=== PATIENT | female | born 1995 | race Caucasian/White ===

== ENCOUNTER 2020-12-05 15:24 | Outpatient (CLI) | payer OTHER, MEDICAID, SELFPAY ==
--- NOTE | 2020-12-05 | US_ITS ---
WS: [id number] EARLY OBSTETRICAL ULTRASOUND (<14 WEEKS). HISTORY: SUPERVISED NORMAL COMPARISON: None available. Single intrauterine gestational sac is identified. Cardiac activity at 171 BPM. Beacon-rump length gregory sures 1.8 cm which corresponds to a gestation of 8w2d. Normal-appearing yolk sac and amnion demonstra elsy. Smallsubchorionic hemorrhage.Mixed echogenicity noted along the inferior gestational sac measure s 2.2 x 2.8 x 2.5 cm consistent with a small subchorionic hemorrhage. No free fluid. LEFT ovary is not visualized. RIGHT ovary is poorly visualized. Cervix is closed. US/US OB <=14 wk fetus w transvag IMPRESSION: 1. Single intrauterine gestation of 8 weeks 2 days an EDC of 07/15/2021. 2. Small subchorionic hemorrhage.
== END 2020-12-05 15:25 | disposition home or self-care (01) ==
LOC: RAD 15:27
PROVIDERS: PCP Electrodiagnostic Medicine; Visit Provider Family Medicine
DX: Z34.91 Encounter for supervision of normal pregnancy, unspecified, first trimester (principal); Z3A.08 8 weeks gestation of pregnancy
CPT/HCPCS: 76801; 76817

== ENCOUNTER 2021-02-17 09:20 | Outpatient (CLI) | payer OTHER, MEDICAID, SELFPAY ==
--- NOTE | 2021-02-17 09:30 | US_ITS ---
WS: [id number] THYROID ULTRASOUND (TI-RADS CRITERIA) History: 03/27/2015. Technique: Ultrasound examination of the thyroid and adjacent soft tissues is performed. FINDINGS: Right lobe: 5.9 cm x 1.9 cm x 1.5 cm. Volume: 9.0 cm3. Slightly enlarged thyroid with no focal solid nodule. Echotexture is very coarse which is new since t he prior study. Small colloid cyst in the central gland. No increased vascularity. Left lobe: 5.9 cm x 2.1 cm x 2.1 cm. Volume: 13.3 cm3. Mildly enlarged LEFT thyroid with coarse echotexture. No mass or nodules identified. No increased vas cularity. Isthmus: 0.6 cm. US/US thyroid [id number] Impression: 1. Mildly enlarged heterogeneous thyroid gland. 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 2. No thyroid nodules.
== END 2021-02-17 09:21 | disposition home or self-care (01) ==
LOC: RAD 09:26
PROVIDERS: PCP Electrodiagnostic Medicine; Visit Provider Family Medicine
DX: E04.1 Nontoxic single thyroid nodule (principal); E05.90 Thyrotoxicosis, unspecified without thyrotoxic crisis or storm; E04.9 Nontoxic goiter, unspecified
CPT/HCPCS: 76536

== ENCOUNTER 2021-02-19 07:48 | Outpatient (CLI) | payer OTHER, MEDICAID, SELFPAY ==
--- NOTE | 2021-02-19 08:05 | US_ITS ---
WS: [id number] OBSTETRICAL ULTRASOUND COMPLETE HISTORY: ANATOMY/NORMAL ,MULTIPAROUS COMPARISON: 12/05/2020 Single intrauterine gestation in variable presentation. Cervix is Closed and normal length. Cervical length is 5.8 cm. Normal amount of amniotic fluid surrounds the fetus. Placenta: Anterior, no previa or abruption. Placenta grade 0 Heart: 164 BPM. 4 chamber heart is noted. Outflow tracts appear to be intact. Evaluation is slightly limited by the body habitus. Anatomy: spine is posterior during the examination. No abnormality identified. Intracranial str uctures are negative. kidneys, stomach and urinary bladder are unremarkable. Limited cord inser tion site. The entire abdominal wall is not evident and difficult to visualize due to position. 4 extremities are present. profile: Unremarkable. Gender: Male. measurements: BPD = 4.4 cm = 19w1d HC = 16.4 cm = 19w1d AC = 13.8 cm = 19w1d FL = 3.0 cm = 19w1d EFW: 277 g. Biometry is internally concordant. AGA by ultrasound: 19w1d VIDAL by ultrasound: 07/15/2021 Appropriate growth compared to the first trimester ultrasound. US/US OB >= 14 weeks fetus [id number] IMPRESSION: 1. Single intrauterine gestation of 19w1d with an VIDAL of 07/15/2021. 2. Abdominal wall and cord insertion site are limited due to position of the f etus along with the spine. Suggest short-term follow-up. The remaining anatomy is otherwise negative.
== END 2021-02-19 07:49 | disposition home or self-care (01) ==
LOC: US 07:50
PROVIDERS: PCP Electrodiagnostic Medicine; Visit Provider Family Medicine
DX: Z36.89 Encounter for other specified antenatal screening (principal); Z3A.19 19 weeks gestation of pregnancy
CPT/HCPCS: 76805

== ENCOUNTER 2021-03-03 12:16 | Outpatient (CLI) | payer OTHER, MEDICAID, SELFPAY ==
[2021-03-03 12:30] VITALS: BMI 39.4
[2021-03-03 12:32] VITALS: BP 130/59; PULSE 107; TEMP 36.2
[2021-03-03 12:40] VITALS: RESP 18
[2021-03-03 12:55] VITALS: BP 117/67; PULSE 99; TEMP 36.1
[2021-03-03] MEDS: sodium chloride 0.9% 1,000 ML 999 ML IV (13:12)
[2021-03-03 13:18] LABS: Basophils % 0.4 %; Eosinophils # 0.1 10^3/uL (0.0-0.8); Eosinophils % 0.7 %; Hemoglobin 11.8 g/dL (11.5-15.3); Lymphocytes % 25.9 %; Mean Corpuscular HGB Conc 33.7 g/dL (30.0-36.0); Mean Corpuscular Hemoglobin 29.9 pg (28.0-34.0); Mean Corpuscular Volume 88.6 fL (81-99); Mean Platelet Volume 11.8 fL (7.4-10.4); Monocytes # 0.6 10^3/uL (0.2-0.9); Neutrophils % 64.2 %; Nucleated Red Blood Cells % 0 %; Platelet Count 202 10^3/cmm (130-400); Red Blood Count 3.95 10^6/uL (4.1-5.3); White Blood Count 7.6 10^3/uL (4.0-10.0)
[2021-03-03 13:25] VITALS: BP 110/57; PULSE 93
[2021-03-03 13:38] LABS: Alanine Aminotransferase 19 U/L (0-33); Albumin Level 3.8 g/dL (3.5-5.2); Alkaline Phosphatase 62 IU/L (35-105); Anion Gap 11.2 (5-19); Aspartate Amino Transferase 14 U/L (0-32); Blood Urea Nitrogen 7 mg/dL (6-20); C Reactive Protein 13.1 mg/L (0.0-4.9); Calcium 9.1 mg/dL (8.5-10.5); Carbon Dioxide 24 mmol/L (22-29); Chloride 108 mmol/L (98-107); Globulin 2.6 g/dL (1.3-4.6); Glomerular Filtration Rate 192.9 mL/min (90-130); Glucose 85 mg/dL (65-115); Magnesium 1.8 mg/dL (1.7-2.3); Osmolality Calculated 287 mOsm/kg (285-295); Potassium 3.2 mmol/L (3.5-5.1); Sodium 140 mmol/L (136-145); Total Bilirubin 0.2 mg/dL (0.15-1.2); Total Protein 6.4 g/dL (6.6-8.7)
[2021-03-03 13:55] VITALS: BP 120/55; PULSE 92
[2021-03-03 14:17] VITALS: BP 120/55; PULSE 92
== END 2021-03-03 14:21 | disposition home or self-care (01) ==
LOC: OPOB 12:22 → OBGYN 14:12
PROVIDERS: PCP Electrodiagnostic Medicine; Visit Provider Family Medicine
DX: O26.899 Other specified pregnancy related conditions, unspecified trimester (principal); Z3A.00 Weeks of gestation of pregnancy not specified; R19.7 Diarrhea, unspecified
CPT/HCPCS: 36415; 80053; 83735; 85025; 86140; 96360; 99211; J7030

== ENCOUNTER 2021-03-20 14:48 | Outpatient (CLI) | payer OTHER, MEDICAID, SELFPAY ==
--- NOTE | 2021-03-20 14:59 | US_ITS ---
WS: [id number] ULTRASOUND OB LIMITED TECHNIQUE: Limited ultrasound examination of the fetus. CLINICAL INFORMATION: ABDOMINAL WALL/UMBILICAL CORD INSERTION/FOLLOW UP US COMPARISON: February 19, 2021 FINDINGS: Single interuterine gestation. presentation is breech Placental location is anterior. Placenta grade: 0. heart rate 144 BPM. Cervix measures 5.2 cm. Normal cord insertion. Spine appears normal. [place] [id number] IMPRESSION: 1. presentation is breech. 2. Placenta is anterior. Cervix is long and closed. 3. Normal cord insertion. Spine appears normal.
== END 2021-03-20 14:49 | disposition home or self-care (01) ==
PROVIDERS: PCP Electrodiagnostic Medicine; Visit Provider Family Medicine
DX: O32.1XX0 Maternal care for breech presentation, not applicable or unspecified (principal)
CPT/HCPCS: 76816

== ENCOUNTER 2021-04-29 17:17 | Outpatient (CLI) | payer OTHER, MEDICAID, SELFPAY ==
[2021-04-29] VITALS (7 sets, daily range): BP systolic 121–135; BP diastolic 56–72; PULSE 82–93; RESP 18; TEMP 35.7–36.1; BMI 40.7
[2021-04-29 18:09] LABS: Bilirubin Urine Neg (Negative); Blood Urine Neg (Negative); Glucose Urine UA Norm (Normal); Ketones Urine Negative (Negative); Leukocyte Esterase Urine Negative (Negative); Nitrate Urine Negative (Negative); Protein Urine Neg (Negative); Urine Appearance Clear (CLEAR); Urine Color Yellow (Yellow); Urobilinogen Urine Norm (Negative); pH Urine 5 (5-7)
[2021-04-29 18:14] LABS: Add Urine Culture? No; Bacteria Urine TRACE /hpf; Mucus Urine TRACE /hpf; Squamous Epithelial Cell Urine 0-4 /hpf (0-5)
== END 2021-04-29 18:40 | disposition home or self-care (01) ==
LOC: OPOB 17:19 → OBGYN 17:20
PROVIDERS: PCP Electrodiagnostic Medicine; Visit Provider Family Medicine
DX: O26.899 Other specified pregnancy related conditions, unspecified trimester (principal); Z3A.00 Weeks of gestation of pregnancy not specified; M54.5 Low back pain
CPT/HCPCS: 59025; 81001; 99211

== ENCOUNTER 2021-06-22 06:47 | Emergency (ER) | payer OTHER, MEDICAID, SELFPAY ==
[2021-06-22 06:55] VITALS: BP 124/81; PULSE 62; RESP 24; TEMP 36.7; O2SAT 100; BMI 42.0
[2021-06-22 07:10] VITALS: BP 142/77; PULSE 62; O2SAT 98
--- NOTE | 2021-06-22 07:11 | ED_ITS ---
HPI - Anxiety General: Chief Complaint: Anxiety Stated Complaint: ANXIETY Time Seen by Provider: 06/22/21 07:02 History of Present Illness: HPI narrative: Patient woke with reflux 0 300 this morning. Patient states she pineapple late yesterday. She said this is consistent with her reflux problem that she has had. She is not taking any medications since she is been and reflux has been pretty bad. States that feels like it is in her upper epigastric area and radiates around. Making her feel anxious. Hurts more when she takes deep breath. Patient is 34 weeks denies any other problems can feel baby kicking and moving around presently. Patient states she cannot set up an to help relieve reflux because she said the baby highballs up and makes it worse. complaint: other (Reflux) Onset (ago): hour(s) Severity: moderate Quality: constant Place: home History of similar episodes: Yes Provoking factors: other (Pineapple) Associated symptoms: Reports no associated symptoms; Deny chest pain, chills, fever(s), headache(s), nausea or vomiting Review of Systems Const: Denies: fever(s), chills or body aches Eyes: Denies: change in vision or blurry vision ENMT: Denies: throat pain or nasal congestion Card: Denies: chest pain or dyspnea on exertion Resp: Denies: dyspnea, productive cough or non-productive cough GI: Reports: heartburn; Denies: abdominal pain, nausea or vomiting Musc: Denies: extremity pain Skin/Breast: Denies: rash Neuro: Denies: headache(s) Psych: Denies: anxiety or depression Mayank/Lymph: Denies: easy bruising [facility] ED Female Reproductive History: Date of last menstrual period: 10/09/20 Physical Exam Const: COMMON NORMALS: no acute distress, average body habitus and patient oriented x3 HENMT: COMMON NORMALS: normocephalic HEAD & SCALP: normal to inspection and normocephalic FACE & SINUS: normal facial exam Eye: COMMON NORMALS: conjunctivae normal GENERAL EYE: appearance normal, both eyes and all related structures CONJUNCTIVA: Yes conjunctivae normal Neck/C-Spine: COMMON NORMALS: no JVD Chest: COMMONS NORMALS: normal inspection of the chest Resp: COMMON NORMALS: normal respiratory effort Cardio: COMMON NORMALS: no JVD, regular rate and regular rhythm RATE: regul ar rate RHYTHM: regular rhythm GI: PALPATION: Yes Tenderness to palpation present (GI) (Epigastric area) Extremity: COMMON NORMALS: normal to inspection and full ROM Neuro: COMMON NORMALS: patient oriented x3 Course Vital Signs: Vital signs: Vital Signs Temperature 98.0 F 06/22/21 06:55 Pulse Rate 62 06/22/21 06:55 Respiratory Rate 24 H 06/22/21 06:55 Blood Pressure 124/81 06/22/21 06:55 Pulse Oximetry 100 06/22/21 06:55 MDM - Anxiety MDM Narrative: Medical decision making narrative: Patient had mild to moderate relief with the GI cocktail. Patient states she has felt the baby pushing up on her ribs. And that causes her some discomfort. She denies contractions presently. Patient did not take any reflux medicine during due to desire not to take medications. Reflux has been getting worse and she had chronic reflux moderate to severe before . He said her reflux actually got better than first part of the . Patient is feeling better will be discharged home can follow-up in OB if contractions start did encourage to get some [id number] medication to take and follow-up with OB doctor. Vital signs stable throughout the visit heart tones are 145. Discharge Plan Discharge Patient Disposition: Home Clinical Impression: Acute anxiety Heartburn during Qualifiers: Trimester: third trimester Qualified Code(s): O26.893 - Other specified related conditions, third trimester Condition: Stable Discharge Orders: Discharge ED (Routine); Ordered 06/22/21 Ordered By: Tang Jacobs Referrals: Suresh Chambers DO [Primary Care Provider] - Discharge Diet: As Directed Discharge Activity: Increase activity as tolerated Patient Instructions: Gastroesophageal Reflux Disease (ED) Activity Restrictions/Additional Instructions: Follow-up with medical provider as directed. Take medications as prescribed. Return to the ER or your medical provider if condition worsens. Please read and understand discharge instructions. If any questions ask please. I suggest using [id number] Pepcid and/or Mylanta Maalox combination to help with reflux. Can go to OB if you feel contractions starting to get placed on monitor after discharge. Coding Level of Care Code ED Machine Assistant for Chg Fwd Exam Comprehensive
[2021-06-22] MEDS: lidocaine 2% viscous 15 ML, aluminum-mag hydrox-simethicon 30 ML, sucralfate oral liq 1 GM PO (07:24)
[2021-06-22] MEDS: famotidine 20 mg Tablet 40 MG PO (08:01)
[2021-06-22 08:30] VITALS: BP 132/74; PULSE 64; O2SAT 99
[2021-06-22 09:00] VITALS: BP 132/74; PULSE 57; O2SAT 98
== END 2021-06-22 08:50 | disposition home or self-care (01) ==
PROVIDERS: Emergency Provider Nurse Practitioner Family; PCP Electrodiagnostic Medicine
DX: O99.343 Other mental disorders complicating pregnancy, third trimester (principal); F41.9 Anxiety disorder, unspecified; Z3A.34 34 weeks gestation of pregnancy
CPT/HCPCS: 99283

== ENCOUNTER 2021-06-23 19:26 | Inpatient (IN) | payer OTHER, MEDICAID, SELFPAY ==
[2021-06-23] VITALS (36 sets, daily range): BP systolic 103–138; BP diastolic 52–78; PULSE 78–121; RESP 17; BMI 41.3
--- NOTE | 2021-06-23 14:55 | US_ITS ---
WS: [id number] ABDOMINAL ULTRASOUND LIMITED REASON FOR VISIT: right upper quadrant pain TECHNIQUE: Grayscale and Doppler ultrasound examination of the abdomen. FINDINGS: Pancreas: Obscured by bowel gas. Abdominal aorta and IVC: Normal. Liver: Liver measures 16.6 cm in length. Normal echotexture with no focal lesion. Gallbladder: Gallbladder wall thickness measures 0.6 mm. Multiple gallbladder calculi. No fluid in th e gallbladder fossa. The gallbladder wall is thickened and very echogenic however on some images ther e appears to be some sonolucency in the wall which could represent edema. Right kidney: Right kidney measures 12.7 cm x 5.0 cm x 6.1 cm. Right kidney cortex measures 1.4 cm. N o mass, calculus, mild hydronephrosis of regnancy. US/US gall bladder [id number] IMPRESSION: Cholelithiasis. Equivocal findings for acute cholecystitis.
[2021-06-23 15:34] LABS: Basophils % 0.3 %; Eosinophils % 0.1 %; Hematocrit 34.3 % (37.0-47.0); Hemoglobin 11.8 g/dL (11.5-15.3); Lymphocytes # 1.5 10^3/uL (0.8-4.8); Mean Corpuscular HGB Conc 34.4 g/dL (30.0-36.0); Mean Corpuscular Volume 87.3 fL (81-99); Mean Platelet Volume 11.7 fL (7.4-10.4); Monocytes # 1.2 10^3/uL (0.2-0.9); Monocytes % 7.9 %; Neutrophils # 12.16 10^3/uL (1.8-7.7); Neutrophils % 81.1 %; Nucleated Red Blood Cells % 0 %; Platelet Count 217 10^3/cmm (130-400); Red Blood Count 3.93 10^6/uL (4.1-5.3); Red Cell Distribution Width 13.2 % (12.1-15.1)
[2021-06-23 15:49] LABS: Lactate (Lactic Acid level) 0.8 mmol/L (0.5-2.2)
[2021-06-23 15:57] LABS: Alanine Aminotransferase 7 U/L (0-33); Albumin Level 3.7 g/dL (3.5-5.2); Alkaline Phosphatase 125 IU/L (35-105); Anion Gap 17.8 (5-19); Aspartate Amino Transferase 11 U/L (0-32); Blood Urea Nitrogen 6 mg/dL (6-20); C Reactive Protein 105.8 mg/L (0.0-4.9); Calcium 8.3 mg/dL (8.5-10.5); Carbon Dioxide 18 mmol/L (22-29); Chloride 102 mmol/L (98-107); Globulin 2.8 g/dL (1.3-4.6); Glomerular Filtration Rate 266.9 mL/min (90-130); Glucose 81 mg/dL (65-115); Lipase 12 U/L (13-60); Osmolality Calculated 275 mOsm/kg (285-295); Potassium 3.8 mmol/L (3.5-5.1); Sodium 134 mmol/L (136-145); Total Bilirubin 0.6 mg/dL (0.15-1.2); Total Protein 6.5 g/dL (6.6-8.7)
[2021-06-23] MEDS: cefTRIAXone 2,000 MG in sodium chloride 0.9% (plus) 50 ML 100 MG IV (18:13)
[2021-06-23 18:17] LABS: Glucose Urine UA Norm (Normal); Ketones Urine 3+ (Negative); Protein Urine Neg (Negative); Specific Gravity, Urine 1.015 (1.005-1.030); Urine Appearance Clear (CLEAR); Urine Color Dark Yellow (Yellow); pH Urine 6.5 (5-7)
[2021-06-23 18:18] LABS: Add Urine Culture? No; Bacteria Urine 1+ /hpf; Bilirubin Urine 1+ (Negative); Blood Urine Neg (Negative); Leukocyte Esterase Urine Negative (Negative); Mucus Urine 3+ /hpf; Nitrate Urine Negative (Negative); Urobilinogen Urine 1 mg/dL (Negative); WBC Urine RARE /hpf (0-5)
[2021-06-23] MEDS: metroNIDAZOLE IV 500 MG/100 ML PREMIX 100 MG IV (18:49)
--- NOTE | 2021-06-23 19:25 | PM.HP ---
Providers/Chief Complaint Primary Care Provider: Suresh Chambers DO Chief Complaint: Contractions History of Present Illness Priyanka Ellis is a 26 year old at 36.5 weeks gestation by 8-week ultrasound inconsistent with LMP. Her is complicated by history of gestational hypertension, obesity, thyroid nodule, mild anemia and now with cholecystitis with cholelithiasis. The patient presented to my office today secondary to abdominal pain. She was concerned that it could be acid reflux. She went to the emergency department on Wednesday and was given a GI cocktail and sent home without labs. The patient was nauseous and has not been able to hold anything down. She was given Prilosec in the ER and it helped with acid reflux but she is getting worse. The patient has body aches all over. Because of these findings, I sent the patient to the OB department for further evaluation including labs and an ultrasound of her gallbladder. In the OB unit, the patient was found to have acute cholecystitis with cholelithiasis. Her labs were consistent with this as well. Patient denies any fevers, constipation, dysuria, headaches, cough. Medications/Allergies Allergies Allergy/AdvReac Type Severity Reaction Status Date / Time Penicillins Allergy ALGY-Anaphy Verified 06/22/21 06:53 laxis PFSH Acute PFSH: Medical History (Updated 06/23/21 @ 19:46 by Abner Cho MD) Thyroid nodule Surgical History (Updated 06/23/21 @ 19:46 by Abner Cho MD) H/O right knee surgery H/O wrist surgery [place] teeth removed Female Reproductive History: Date of last menstrual period: 10/09/20 : 3 Vitals/I&O/Wt Last Vital Signs Pulse 85 06/23/21 19:13 Resp 17 06/23/21 14:51 BP 136/63 06/23/21 19:13 06/23/21 06/23/21 06/23/21 06:59 14:59 22:59 Intake Total 50 / 50 Balance 50 / 50 Weight last 48 hrs Weight 264 lb Physical Exam Narrative: EXAM NARRATIVE: General: Alert and oriented x3 Eyes: Pupils equal round and reactive to light and accommodation Mouth: Mucous membranes moist, pharynx non-erythematous Cardiac: Regular rate and rhythm without murmurs Lungs: Clear to auscultation bilaterally without wheezes, crackles or rhonchi Abdomen: Positive Blair's sign, uterus is firm and consistent with gestational age. Extremities: Trace edema in the bilateral lower extremities Data : 06/23/21 15:10 06/23/21 15:10 A&P Additional A&P Information The patient has signs of acute cholecystitis with cholelithiasis. I spoke with Dr. Patterson regarding the patient and we will plan to start the patient on ceftriaxone and Flagyl for treatment of the cholecystitis. If this calms down, we will plan for doing a cholecystectomy outside of . If it is not improving, then we may need to proceed with an open cholecystectomy. The patient is having contractions every 3 to 5 minutes but currently is not making cervical change. She was 1 cm dilated upon arrival and has not made change at this point. We will repeat labs in the morning to see if there are signs of improvement. All questions were answered. The patient is in agreement with current plan of care. Attestations Medical Necessity Statement*: The patient is currently here under observation and we will follow to see how she does with the above. If she is not improving, we will need to change her status to inpatient at that time. Coding Level of Care Code Acute Subject Scientific Research for Abigail Camacho
[2021-06-23] MEDS: dextrose 5%-sod chloride 0.9% 1,000 ML 125 ML IV (20:41)
[2021-06-23] MEDS: acetaminophen 500 mg Tablet 1000 MG PO (22:59)
[2021-06-24] VITALS (16 sets, daily range): BP systolic 97–124; BP diastolic 46–60; PULSE 74–94; RESP 16–17; TEMP 36–36.8
[2021-06-24] MEDS: metroNIDAZOLE IV 500 MG/100 ML PREMIX 100 MG IV ×3 (02:46→20:26)
[2021-06-24 04:27] LABS: Basophils # 0.1 10^3/uL (0.0-0.1); Basophils % 0.3 %; Eosinophils % 0.2 %; Hematocrit 32.6 % (37.0-47.0); Hemoglobin 10.9 g/dL (11.5-15.3); Lymphocytes # 1.9 10^3/uL (0.8-4.8); Lymphocytes % 12.4 %; Mean Corpuscular HGB Conc 33.4 g/dL (30.0-36.0); Mean Corpuscular Hemoglobin 30.4 pg (28.0-34.0); Mean Corpuscular Volume 91.1 fL (81-99); Mean Platelet Volume 11.6 fL (7.4-10.4); Monocytes # 1.2 10^3/uL (0.2-0.9); Neutrophils % 78.3 %; Nucleated Red Blood Cells % 0 %; Platelet Count 206 10^3/cmm (130-400); Red Blood Count 3.58 10^6/uL (4.1-5.3); Red Cell Distribution Width 13.2 % (12.1-15.1); White Blood Count 15.4 10^3/uL (4.0-10.0)
[2021-06-24 04:48] LABS: Alanine Aminotransferase 8 U/L (0-33); Albumin Level 3.5 g/dL (3.5-5.2); Alkaline Phosphatase 112 IU/L (35-105); Anion Gap 17.4 (5-19); Aspartate Amino Transferase 9 U/L (0-32); Blood Urea Nitrogen 5 mg/dL (6-20); Calcium 8.4 mg/dL (8.5-10.5); Carbon Dioxide 19 mmol/L (22-29); Chloride 102 mmol/L (98-107); Glomerular Filtration Rate 191.5 mL/min (90-130); Glucose 87 mg/dL (65-115); Magnesium 1.8 mg/dL (1.7-2.3); Osmolality Calculated 277 mOsm/kg (285-295); Potassium 3.4 mmol/L (3.5-5.1); Sodium 135 mmol/L (136-145); Total Bilirubin 0.5 mg/dL (0.15-1.2); Total Protein 6.5 g/dL (6.6-8.7)
--- NOTE | 2021-06-24 07:35 | P.CONIM_ITS ---
Providers/Reason For Consult Consulting Physician/Specialty*: General Surgery Freddie Patterson MD Reason for Consult*: Suspected acute cholecystitis in third trimester of . Attending Physician: Abner Cho MD Primary Care Provider: Suresh Chambers DO History of Present Illness History of Present Illness Priyanka Ellis is a 26 year old female currently in her third trimester of (37 weeks) who said that she developed some epigastric burning several days ago. She has a history of reflux issues that have been persisting during and thought she was just dealing with more GERD symptoms, but ended up going to the emergency room where she was treated symptomatically. Unfortunately, further antacid therapy at home was not helpful. She denies any fevers or chills. She was seen in her primary care/obstetrics office and gallbladder disease was suspected given her tenderness on exam. An ultrasound showed cholelithiasis with gallbladder wall thickening. The patient cannot really say that she has had food intolerances or recurrent postprandial pain during her or before. The symptoms that she is now having apparently just had their onset very recently. The patient says she already feels a little bit better this morning. Review of Systems General: Reports: 10 or more systems reviewed and unremarkable except in HPI and below Const: Denies: fever(s) or chills Resp: Denies: dyspnea GI: Reports: abdominal pain, nausea, vomiting and diarrhea Meds/Allergies Home Medications and Allergies Allergies Allergy/AdvReac Type Severity Reaction Status Date / Time Penicillins Allergy ALGY-Anaphy Verified 06/22/21 06:53 laxis Current Medications Current Medications Generic Name Dose Route Start Last Admin Trade Name Freq PRN Reason Stop Dose Admin Acetaminophen 1,000 mg 06/23/21 19:24 06/23/21 22:59 Acetaminophen 500 Mg Tablet PO 1,000 mg Q6H PRN Administration MILD PAIN OR INCREASE TEMP Metronidazole 500 mg in 100 mls @ 100 mls/hr 06/23/21 18:30 06/24/21 02:46 Flagyl Iv IV 100 mls/hr Q8H KATI Administration Protocol Ceftriaxone Sodium 2,000 mg/ 50 mls @ 100 mls/hr 06/23/21 18:00 06/23/21 18:49 Sodium Chloride IV Infused Q24H KATI Infusion Protocol Dextrose/Sodium Chloride 1,000 mls @ 125 mls/hr 06/23/21 20:00 06/23/21 20:41 Dextrose 5%-Sod Chloride 0.9% IV 125 mls/hr .Q8H KATI Administration PFSH Acute PFSH: Medical History (Updated 06/23/21 @ 19:46 by Abner Cho MD) Thyroid nodule Surgical History (Updated 06/23/21 @ 19:46 by Abner Cho MD) H/O right knee surgery H/O wrist surgery [place] teeth removed Female Reproductive History: Date of last menstrual period: 10/09/20 : 3 Vitals/I&O/Wt Last Vital Signs Temp 98.3 F 06/24/21 05:01 Pulse 94 06/24/21 07:27 Resp 17 06/24/21 05:01 BP 110/51 06/24/21 07:27 06/23/21 06/24/21 06/24/21 22:59 06:59 14:59 Intake Total 150 / 150 Balance 150 / 150 Weight last 48 hrs Weight 264 lb Physical Exam Narrative: EXAM NARRATIVE: Was encountered in the obstetrics gunderson. She does not appear to be in any acute distress. The pupils are equal. No carotid bruits are heard. The lungs are clear anteriorly. The heart is regular. The abdomen is gravid and bowel sounds are present but may be somewhat hypoactive. The patient does have significant tenderness in the right upper quadrant but the remainder the abdomen is nontender. Blair's sign is equivocal. The extremities reveal no edema. Neurologically the patient is grossly intact. Data Labs: Other Labs: Laboratory Tests 06/23/21 06/24/21 15:10 04:19 Total Bilirubin 0.5 AST 9 ALT 8 Alkaline Phosphata se 112 H Lipase 12 L Imaging^: US: Radiologist's impression: Ultrasound 06/23/2021 IMPRESSION: Cholelithiasis. Equivocal findings for acute cholecystitis. A&P Assessment and plan (1) Acute calculous cholecystitis: The radiologist felt the imaging changes were equivocal for acute calculus cholecystitis, but I do not think there is any question that that is what is going on. Her gallbladder wall is 6 mm in diameter and appears to be edematous. I discussed gallbladder disease with the patient in some detail. Obviously her third trimester complicates this issue. I told her that our plan for now is to continue antibiotics (she has a penicillin allergy but is tolerating her third-generation cephalosporin without any symptoms) in the hope that she continues to improve and then we can approach her gallbladder following delivery, assuming she has no other complications. If she does not improve, however, consideration could be given to a percutaneous cholecystostomy tube, but we would have to find an interventional radiologist willing to do this; I will check with our local staff to see if this would even be a possibility. The alternative would be an open cholecystectomy, which I would like to try to avoid. Status: Acute Consult Attestations Medical Necessity Statement: See admitting service's notation. Coding Level of Care Code Acute Office Runner for g Fwd Diagnoses Acute calculous cholecystitis K80.00
[2021-06-24] MEDS: acetaminophen 500 mg Tablet 1000 MG PO (11:33)
[2021-06-24 14:27] LABS: Coronavirus Test Green County Not Detected
[2021-06-24] MEDS: dextrose 5%-sod chloride 0.9% 1,000 ML 125 ML IV (14:39)
--- NOTE | 2021-06-24 16:09 | PM.PN ---
Subjective Subjective: Interval history: The patient's pain was improving overnight, however did worsen after having some pudding. Prior to this it just felt like pressure. She has not had any vomiting. She has not had any fevers overnight. Vitals/I&O/Wt Last Vital Signs Temp 98.3 F 06/24/21 05:01 Pulse 77 06/24/21 14:22 Resp 16 06/24/21 07:30 BP 107/57 06/24/21 14:22 06/24/21 06/24/21 06/24/21 06:59 14:59 22:59 Intake Total 1100 / 1250 100 / 100 Balance 1100 / 1250 100 / 100 Weight last 48 hrs Weight 264 lb Physical Exam Narrative: EXAM NARRATIVE: General: Alert and oriented x3 Cardiac: Regular rate and rhythm without murmurs Lungs: Clear to auscultation bilaterally without wheezes, crackles or rhonchi Abdomen: Positive Blair's sign with stable pain in the right upper quadrant, uterus is firm and consistent with gestational age. Extremities: Trace edema in the bilateral lower extremities Data : 06/24/21 04:19 06/24/21 04:19 A&P Additional A&P Information The patient has acute cholecystitis and she is starting to show signs of improvement with Rocephin and Flagyl. The patient's pain is improving some, however was definitely worsened with pudding. We will continue with IV antibiotics and follow to see if her symptoms continue to improve sufficiently. If they do, there is a possibility that we could await induction of labor. If she is not improving or worsening, the patient may need to be induced to be able to proceed with a laparoscopic cholecystectomy. Patient would like to avoid having an open cholecystectomy in terms of risk and recovery time. I appreciate Dr. Patterson's consultation with this patient. We will need to change the patient to a full admit as we continue with IV antibiotics. Attestations Medical Necessity Statement*: The patient continues need inpatient care the patient will be here for greater than 2 midnights. Coding Level of Care Code Acute Quill Picking Machine Operator for Abigail Camacho
[2021-06-24] MEDS: cefTRIAXone 2,000 MG in sodium chloride 0.9% (plus) 50 ML 100 MG IV (18:40)
[2021-06-24] MEDS: ferrous sulfate EC 325 mg Tablet PO (18:40)
[2021-06-24] MEDS: loperamide 2 mg Capsule PO (18:44)
[2021-06-25] VITALS (9 sets, daily range): BP systolic 95–122; BP diastolic 49–63; PULSE 65–87
[2021-06-25] MEDS: metroNIDAZOLE IV 500 MG/100 ML PREMIX 100 MG IV ×3 (02:13→19:15)
[2021-06-25] MEDS: loperamide 2 mg Capsule PO (02:14)
[2021-06-25] MEDS: dextrose 5%-sod chloride 0.9% 1,000 ML 125 ML IV (02:14)
[2021-06-25 05:08] LABS: Basophils % 0.3 %; Eosinophils # 0.1 10^3/uL (0.0-0.8); Eosinophils % 0.8 %; Hematocrit 29.6 % (37.0-47.0); Hemoglobin 9.7 g/dL (11.5-15.3); Lymphocytes # 1.8 10^3/uL (0.8-4.8); Lymphocytes % 15.3 %; Mean Corpuscular HGB Conc 32.8 g/dL (30.0-36.0); Mean Corpuscular Hemoglobin 30.1 pg (28.0-34.0); Mean Corpuscular Volume 91.9 fL (81-99); Mean Platelet Volume 11.6 fL (7.4-10.4); Monocytes # 0.7 10^3/uL (0.2-0.9); Neutrophils # 9.05 10^3/uL (1.8-7.7); Neutrophils % 76.7 %; Nucleated Red Blood Cells % 0 %; Platelet Count 188 10^3/cmm (130-400); Red Blood Count 3.22 10^6/uL (4.1-5.3); Red Cell Distribution Width 13.3 % (12.1-15.1); White Blood Count 11.8 10^3/uL (4.0-10.0)
[2021-06-25 05:26] LABS: Alanine Aminotransferase 6 U/L (0-33); Albumin Level 3.3 g/dL (3.5-5.2); Alkaline Phosphatase 113 IU/L (35-105); Anion Gap 11.2 (5-19); Aspartate Amino Transferase 7 U/L (0-32); Blood Urea Nitrogen 3 mg/dL (6-20); Calcium 8.1 mg/dL (8.5-10.5); Carbon Dioxide 20 mmol/L (22-29); Chloride 107 mmol/L (98-107); Glomerular Filtration Rate 191.5 mL/min (90-130); Glucose 78 mg/dL (65-115); Osmolality Calculated 275 mOsm/kg (285-295); Potassium 3.2 mmol/L (3.5-5.1); Sodium 135 mmol/L (136-145); Total Bilirubin 0.2 mg/dL (0.15-1.2); Total Protein 5.3 g/dL (6.6-8.7)
--- NOTE | 2021-06-25 09:00 | P.PN_ITS ---
Subjective Subjective: Interval history: The patient says she continues to feel better daily. Vitals/I&O/Wt Last Vital Signs Temp 98.3 F 06/24/21 05:01 Pulse 71 06/25/21 04:56 Resp 16 06/24/21 07:30 BP 95/49 06/25/21 04:56 06/24/21 06/25/21 06/25/21 22:59 06:59 14:59 Intake Total 1150 / 1250 Balance 1150 / 1250 Weight last 48 hrs Weight 264 lb Physical Exam Narrative: EXAM NARRATIVE: Bowel sounds are present. She significantly less tender on exam today. Data : 06/25/21 05:00 06/25/21 05:00 A&P Assessment and plan (1) Acute calculous cholecystitis: Continued improvement as hoped. Discussed plan with Dr. Cho. If the patient continues to do well over the next 24 hours I would agree with sending her home, perhaps on oral antibiotics for 5 days or so. I did discuss a possible cholecystostomy tube with Dr. Hitchcock in radiology; he said he would be at least willing to try this if we ran into the need for it, but right now it looks like we might be able to avoid it altogether. Status: Acute Attestations Medical Necessity Statement*: See admitting service's notation. Coding Level of Care Code Acute Automatic Quilling Machine Operator for Abigail Camacho Diagnoses Acute calculous cholecystitis K80.00
[2021-06-25] MEDS: prenatal vitamin Capsule 1 CAP PO (09:55)
[2021-06-25] MEDS: ferrous sulfate EC 325 mg Tablet PO ×2 (09:55→18:14)
--- NOTE | 2021-06-25 14:47 | PM.PN ---
Subjective Subjective: Interval history: The patient's pain is starting she still has pain when the baby puts pressure on the right upper quadrant, however this is improving. The patient has been able to tolerate some liquids as long as they do not have higher fat content in them. The patient was able to tolerate oatmeal overnight. She would like to try a baked potato. She is having some diarrhea that is currently controlled with Imodium. She is only having mild nausea currently. Vitals/I&O/Wt Last Vital Signs Temp 98.3 F 06/24/21 05:01 Pulse 81 06/25/21 11:20 Resp 16 06/24/21 07:30 BP 101/55 06/25/21 11:20 06/24/21 06/25/21 06/25/21 22:59 06:59 14:59 Intake Total 1150 / 1250 100 / 1350 Balance 1150 / 1250 100 / 1350 Physical Exam Narrative: EXAM NARRATIVE: General: Alert and oriented x3 Cardiac: Regular rate and rhythm without murmurs Lungs: Clear to auscultation bilaterally without wheezes, crackles or rhonchi Abdomen: Positive Blair's sign with mild pain in the right upper quadrant, uterus is firm and consistent with gestational age. Extremities: Trace edema in the bilateral lower extremities Data : 06/25/21 05:00 06/25/21 05:00 A&P Additional A&P Information The patient has acute cholecystitis and she is starting to show signs of improvement with Rocephin and Flagyl. Overall I feel that medical management may be possible. We discussed that there would be benefits to the to wait until 39 weeks for delivery. Since the patient is showing signs of improvement, we will plan for IV antibiotics through tomorrow and consider discharge home at that time with oral antibiotics. If the patient is worsening with this, she may need a cholecystostomy tube versus open cholecystectomy. Otherwise we will plan for induction of labor at approximately 39 weeks and cholecystectomy after this. The patient is feeling more comfortable at this time. We will continue to advance diet with low-fat foods and see how she does with these. The patient does have some anemia that is likely delusional, however we will continue with the iron supplement as prescribed. The patient also has some mildly low potassium levels and we will replace this by mouth. This is likely secondary to the loose stools. Continue with current plan of care. All questions were answered. Attestations Medical Necessity Statement*: The patient continues need inpatient care and will be here for greater than 2 midnights. Coding Level of Care Code Acute Lead Ruby On Rails Developer for Abigail Camacho
[2021-06-25] MEDS: potassium chloride ER 20 mEq Tablet PO (15:35)
[2021-06-25] MEDS: cefTRIAXone 2,000 MG in sodium chloride 0.9% (plus) 100 ML 200 MG IV (18:07)
[2021-06-26] MEDS: dextrose 5%-sod chloride 0.9% 1,000 ML 50 ML IV (02:52)
[2021-06-26] MEDS: metroNIDAZOLE IV 500 MG/100 ML PREMIX 100 MG IV (03:10)
[2021-06-26 04:07] VITALS: BP 105/51; PULSE 73
[2021-06-26 07:34] LABS: Basophils % 0.4 %; Eosinophils # 0.2 10^3/uL (0.0-0.8); Eosinophils % 1.8 %; Hematocrit 33.6 % (37.0-47.0); Lymphocytes # 1.9 10^3/uL (0.8-4.8); Lymphocytes % 20.9 %; Mean Corpuscular HGB Conc 32.7 g/dL (30.0-36.0); Mean Corpuscular Hemoglobin 29.5 pg (28.0-34.0); Mean Corpuscular Volume 90.1 fL (81-99); Mean Platelet Volume 11.5 fL (7.4-10.4); Monocytes # 0.5 10^3/uL (0.2-0.9); Monocytes % 5.5 %; Neutrophils # 6.32 10^3/uL (1.8-7.7); Neutrophils % 70.6 %; Nucleated Red Blood Cells % 0 %; Platelet Count 193 10^3/cmm (130-400); Red Blood Count 3.73 10^6/uL (4.1-5.3); Red Cell Distribution Width 13.3 % (12.1-15.1)
[2021-06-26 07:54] LABS: Alanine Aminotransferase 7 U/L (0-33); Alkaline Phosphatase 118 IU/L (35-105); Anion Gap 15.6 (5-19); Aspartate Amino Transferase 11 U/L (0-32); Blood Urea Nitrogen 4 mg/dL (6-20); Calcium 7.9 mg/dL (8.5-10.5); Carbon Dioxide 20 mmol/L (22-29); Chloride 107 mmol/L (98-107); Globulin 3.1 g/dL (1.3-4.6); Glomerular Filtration Rate 266.9 mL/min (90-130); Glucose 118 mg/dL (65-115); Magnesium 1.7 mg/dL (1.7-2.3); Osmolality Calculated 286 mOsm/kg (285-295); Potassium 3.6 mmol/L (3.5-5.1); Sodium 139 mmol/L (136-145); Total Bilirubin 0.2 mg/dL (0.15-1.2); Total Protein 6.1 g/dL (6.6-8.7)
--- NOTE | 2021-06-26 08:14 | P.PN_ITS ---
Subjective Subjective: Interval history: The patient continues to feel better daily. Vitals/I&O/Wt Last Vital Signs Temp 98.3 F 06/24/21 05:01 Pulse 73 06/26/21 04:07 Resp 16 06/24/21 07:30 BP 105/51 06/26/21 04:07 06/25/21 06/26/21 06/26/21 22:59 06:59 14:59 Intake Total 690 / 1790.000 Balance 690 / 1790.000 Physical Exam Narrative: EXAM NARRATIVE: She has minimal remaining tenderness in the right upper quadrant on exam. Data : 06/26/21 07:15 06/26/21 07:15 A&P Assessment and plan (1) Acute calculous cholecystitis: Continued improvement as hoped. I am okay with the patient being discharged on a short course of oral antibiotics. We did discuss a cholecystectomy following delivery, assuming no further problems in the interim. I have recommended that she consider this within the first couple of months if she is having symptoms (most patients who remain symptomatic will have recurring problems by 3 months postpar james), but I do not know that it would be urgent immediately following delivery. Status: Acute Attestations 2 Medical Necessity Statement*: See admitting service's notation. 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
--- NOTE | 2021-06-26 08:41 | PM.DCS ---
Discharge Providers Date of Admission: 06/24/21 16:30 Date of Discharge: June 26, 2021 Attending Provider at Admission: Abner Cho MD Attending Provider at Discharge: Abner Cho MD Primary Care Provider: Suresh Chambers DO Diagnoses at Discharge Discharge Diagnosis (1) Acute calculous cholecystitis: Status: Acute Reason for Visit Reason for Visit: Contractions Hospital Course Hospital Course Priyanka Ellis is a 26 year old at 37.1 weeks gestation by 8-week ultrasound inconsistent with LMP. Her is complicated by history of gestational hypertension, obesity, thyroid nodule, mild anemia and now with acute cholecystitis with cholelithiasis. The patient presented to my office today secondary to abdominal pain. The patient was nauseous and had not been able to hold anything down. She was given Prilosec in the ER and it helped with acid reflux but she was getting worse. The patient had body aches all over. Because of these findings, I sent the patient to the OB department for further evaluation including labs and an ultrasound of her gallbladder. In the OB unit, the patient was found to have acute cholecystitis with cholelithiasis. Her labs were consistent with this as well. The patient was started on IV ceftriaxone and metronidazole for treatment of the cholecystitis. Dr. Patterson was consulted from surgery and gave recommendations that surgical intervention could be done if needed, however it would need to be an open procedure due to her gestational age. A cholecystostomy tube would also be a possibility if needed. I discussed this with the patient and we decided to see if the antibiotics would control her symptoms sufficiently enough to wait for the cholecystectomy after delivery. The patient's symptoms did improve with antibiotics and with significant dietary changes to cut out all fats. The patient was given IV antibiotics for 3 days and sent home with cefdinir and metronidazole as an outpatient. The patient will be induced secondary to the above at 39 weeks gestation and plan for a cholecystectomy after that at some point. The patient is to follow-up with me in clinic tomorrow and regularly afterwards and if her symptoms are worsening again, then we will proceed based on her gestational age. The patient is in agreement with the current plan of care and all questions were answered. I appreciate surgery's consultation with this patient. Physical Exam Narrative: EXAM NARRATIVE: General: Alert and oriented x3 Cardiac: Regular rate and rhythm without murmurs Lungs: Clear to auscultation bilaterally without wheezes, crackles or rhonchi Abdomen: No further pain in the right upper quadrant, uterus is firm and consistent with gestational age. Extremities: Trace edema in the bilateral lower extremities Discharge Data Data Completed and Pending: Completed Studies During Hospitalization Category Date Time Status US gall bladder 7 6705 Stat Ultrasound 06/23/21 14:55 Completed Labs from last 24 hours 06/26/21 06/26/21 07:15 07:15 WBC 9.0 RBC 3.73 L Hgb 11.0 L Hct 33.6 L MCV 90.1 MCH 29.5 MCHC 32.7 RDW 13.3 Plt Count 193 MPV 11.5 H Neut % (Auto) 70.6 Lymph % (Auto) 20.9 [place] % (Auto) 5.5 Eos % (Auto) 1.8 Baso % (Auto) 0.4 Neut # (Auto) 6.32 Lymph # (Auto) 1.9 [place] # (Auto) 0.5 Eos # (Auto) 0.2 Baso # (Auto) 0.0 Nucleated RBC % (a uto) 0 Nucleated RBCs # 0.0 Sodium 139 Potassium 3.6 Chloride 107 Carbon Dioxide 20 L Anion Gap 15.6 BUN 4 L Creatinine 0.3 L GFR Calculation 266.9 H Glucose 118 H Calculated Osmolal ity 286 Calcium 7.9 L Magnesium 1.7 Total Bilirubin 0.2 AST 11 ALT 7 Alkaline Phosphata se 118 H C-React Prot High Sens 10.280 H Total Protein 6.1 L Albumin 3.0 L Globulin 3.1 Vitals: Last Vital Signs Temp 98.3 F 06/24/21 05:01 Pulse 73 06/26/21 04:07 Resp 16 06/24/21 07:30 BP 105/51 06/26/21 04:07 Discharge Plan Discharge Patient Disposition: Home Condition: Stable Prescriptions: New cefdinir 300 mg capsule 300 mg PO BID 7 Days Qty: 14 RF: 0 metronidazole 500 mg tablet 500 mg PO TID Qty: 21 RF: 0 loperamide 2 mg capsule 2 mg PO QID PRN (Reason: loose stool) Qty: 30 RF: 0 Discharge Orders: Discharge Order (Routine); Ordered 06/26/21 Ordered By: Abner Cho Referrals: Abner Cho MD [Physician] - 06/27/21 (As scheduled) Discharge Diet: As Directed, Low Fat and GI Soft Discharge Activity: Increase activity as tolerated Patient Instructions: Cholecystitis (DC), Opioid Safety, OB Undelivered Discharge Activity Restrictions/Additional Instructions: If your pain is starting to increase again, please return to OB for a recheck or contact Dr. Cho. Discharge Attestations Time Spent in Discharge Care*: greater than 30 min Quality Metrics Clinical Quality Measures During this hospital stay, did patient experience: None Coding Level of Care Code Acute Chg FW DC note Diagnoses Acute calculous cholecystitis K80.00
[2021-06-26] MEDS: prenatal vitamin Capsule 1 CAP PO (09:44)
[2021-06-26] MEDS: ferrous sulfate EC 325 mg Tablet PO (09:44)
[2021-06-26] MEDS: metroNIDAZOLE 500 MG Tablet PO (10:53)
[2021-06-26 10:59] VITALS: BP 117/58; PULSE 79
[2021-06-26 11:00] VITALS: RESP 17; TEMP 36.7
[2021-06-26] MEDS: cefTRIAXone 2,000 MG in sodium chloride 0.9% (plus) 100 ML 200 MG IV (16:42)
[2021-06-26 17:22] VITALS: BP 119/58; PULSE 71; RESP 16; TEMP 36.9
== END 2021-06-26 17:40 | disposition home or self-care (01) | DRG 832 ==
LOC: OBGYN 06-24 11:03
PROVIDERS: Surgery; Admitting Provider Family Medicine; PCP Electrodiagnostic Medicine; Visit Provider Family Medicine
DX: O99.613 Diseases of the digestive system complicating pregnancy, third trimester (principal); K80.00 Calculus of gallbladder with acute cholecystitis without obstruction; O13.3 Gestational [pregnancy-induced] hypertension without significant proteinuria, third trimester; O99.213 Obesity complicating pregnancy, third trimester; O99.013 Anemia complicating pregnancy, third trimester; D64.9 Anemia, unspecified; Z3A.37 37 weeks gestation of pregnancy
CPT/HCPCS: 36415; 59025; 76705; 80048; 80053; 80076; 81001; 83605; 83690; 83735; 85025; 86140; 86141; 86850; 86900; 87040; 87635; 99211; G0378; J0696; S0030

== ENCOUNTER 2021-07-07 04:14 | Inpatient (IN) | payer MEDICAID, SELFPAY ==
[2021-07-07] VITALS (94 sets, daily range): BP systolic 111–142; BP diastolic 53–91; PULSE 56–105; RESP 20; TEMP 36.6–36.8; O2SAT 91–100; BMI 42.0
[2021-07-07 04:58] LABS: Basophils # 0.1 10^3/uL (0.0-0.1); Basophils % 0.6 %; Eosinophils % 0.4 %; Hemoglobin 11.3 g/dL (11.5-15.3); Lymphocytes # 2.5 10^3/uL (0.8-4.8); Lymphocytes % 26.8 %; Mean Corpuscular HGB Conc 33.2 g/dL (30.0-36.0); Mean Corpuscular Hemoglobin 29.8 pg (28.0-34.0); Mean Corpuscular Volume 89.7 fL (81-99); Mean Platelet Volume 12.3 fL (7.4-10.4); Monocytes # 0.6 10^3/uL (0.2-0.9); Monocytes % 6.5 %; Neutrophils # 6.06 10^3/uL (1.8-7.7); Neutrophils % 65.2 %; Nucleated Red Blood Cells % 0 %; Platelet Count 234 10^3/cmm (130-400); Red Blood Count 3.79 10^6/uL (4.1-5.3); Red Cell Distribution Width 13.3 % (12.1-15.1); White Blood Count 9.3 10^3/uL (4.0-10.0)
[2021-07-07 05:25] LABS: Alanine Aminotransferase 16 U/L (0-33); Albumin Level 3.6 g/dL (3.5-5.2); Alkaline Phosphatase 127 IU/L (35-105); Blood Urea Nitrogen 7 mg/dL (6-20); Calcium 8.7 mg/dL (8.5-10.5); Carbon Dioxide 21 mmol/L (22-29); Chloride 104 mmol/L (98-107); Globulin 3.1 g/dL (1.3-4.6); Glomerular Filtration Rate 191.5 mL/min (90-130); Glucose 70 mg/dL (65-115); Osmolality Calculated 278 mOsm/kg (285-295); Sodium 136 mmol/L (136-145); Total Bilirubin 0.2 mg/dL (0.15-1.2); Total Protein 6.7 g/dL (6.6-8.7); Uric Acid 2.8 mg/dL (2.4-5.7)
[2021-07-07 05:28] LABS: Bilirubin Urine Neg (Negative); Blood Urine Neg (Negative); Glucose Urine UA Norm (Normal); Ketones Urine Negative (Negative); Leukocyte Esterase Urine Negative (Negative); Nitrate Urine Negative (Negative); Protein Urine Neg (Negative); Specific Gravity, Urine 1.005 (1.005-1.030); Urine Appearance Clear (CLEAR); Urine Color Yellow (Yellow); Urobilinogen Urine Norm (Negative); pH Urine 7 (5-7)
[2021-07-07 05:29] LABS: Add Urine Culture? No; Amorphous Sediment Urine 1+ /hpf; Bacteria Urine TRACE /hpf; Mucus Urine 1+ /hpf; RBC Urine 0-4 /hpf (0-2); Squamous Epithelial Cell Urine 0-4 /hpf (0-5); WBC Urine 0-4 /hpf (0-5)
[2021-07-07 05:31] LABS: Urine Creatinine 28 mg/dL (28-217); Urine Protein Random 4 mg/dL
[2021-07-07 05:32] LABS: UPRO/UCREAT Ratio 0.14 mg/mg CR
[2021-07-07 05:34] LABS: Anion Gap 15.1 (5-19)
[2021-07-07 05:35] LABS: Aspartate Amino Transferase 17 U/L (0-32); Potassium 4.1 mmol/L (3.5-5.1)
[2021-07-07] MEDS: lactated ringers 1,000 ML 999 ML IV (07:28)
--- NOTE | 2021-07-07 07:55 | PM.HP ---
Providers/Chief Complaint Admitting Physician: Abner Cho MD Primary Care Provider: Suresh Chambers DO Chief Complaint: contractions History of Present Illness Priyanka Ellis is a 26 year old at 38.5 weeks gestation by 8-week ultrasound inconsistent with LMP. Her is complicated by obesity, thyroid nodule, mild anemia, acute cholecystitis with cholelithiasis at 37 weeks gestation. The patient presented to labor and delivery triage at approximately 1 AM on 07/07/2021 due to contractions. The patient was 1.5 cm upon arrival and changed to 3 cm dilation after 2 hours. For this reason the patient was kept for spontaneous labor. Her contractions were every 4 minutes and have spaced out to every 5 to 6 minutes. The patient denies any chest pains, shortness of breath, nausea, vomiting, diarrhea, constipation, dysuria, vaginal bleeding, leakage of fluid, fever. Her Covid test on 07/04/2021 was negative. Medications/Allergies Home Medications Medication Instructions Recorded Confirmed Last Taken Type loperamide 2 mg PO QID PRN #30 cap 06/26/21 Unknown Rx metronidazole 500 mg PO TID #21 tab 06/26/21 Unknown Rx Allergies Allergy/AdvReac Type Severity Reaction Status Date / Time Penicillins Allergy ALGY-Anaphy Verified 06/22/21 06:53 laxis PFSH Acute PFSH: Medical History Thyroid nodule Surgical History H/O right knee surgery H/O wrist surgery [place] teeth removed Female Reproductive History: Date of last menstrual period: 10/09/20 : 3 Vitals/I&O/Wt Last Vital Signs Temp 98.2 F 07/07/21 04:40 Pulse 88 07/07/21 07:05 Resp 20 H 07/07/21 01:07 BP 118/66 07/07/21 07:05 Weight last 48 hrs Weight 268 lb Physical Exam Narrative: EXAM NARRATIVE: General: Alert and oriented x3 Eyes: Pupils equal round and reactive to light and accommodation Mouth: Mucous membranes moist, pharynx non-erythematous Cardiac: Regular rate and rhythm without murmurs Lungs: Clear to auscultation bilaterally without wheezes, crackles or rhonchi Abdomen: Soft, non-tender, fundus consistent with gestational age Extremities: Trace edema in the bilateral lower extremities Data : 07/07/21 03:58 07/07/21 03:58 A&P Assessment and plan (1) Obesity: Status: Acute (2) Intrauterine : Status: Acute Additional A&P Information The patient presented to labor and delivery in spontaneous labor and change from 1.5 cm to 3 cm dilation. Her contractions have spaced out, so we will go ahead and augment her labor with IV Pitocin. The patient will receive a laboring epidural. Her GBS is negative. The patient's Covid swab done on 07/04/2021 was negative. All questions were answered the patient is in agreement with the current plan of care. Attestations Medical Necessity Statement*: The patient will be here for greater than 2 midnights due to routine intrapartum and management of labor and delivery. Coding Level of Care Code Acute Improvement Intern for Chg Fwd Diagnoses Obesity E66.9 Intrauterine Z34.90
[2021-07-07] MEDS: oxytocin 30 UNIT/500 ML BAG IV (08:53)
--- NOTE | 2021-07-07 09:00 | P.ANESASSM_ITS ---
Pre-Anesthetic Assessment Pre-Anesthetic Assessment: Height/Weight: Height 1.7 m Weight 121.563 kg Temp Pulse Resp BP Pulse Ox 98.2 F 80 20 H 141/69 99 07/07/21 04:40 07/07/21 09:24 07/07/21 01:07 07/07/21 09:24 07/07/21 09:21 Preop Diagnosis: IUP Was Beta Lo taken within 24 hours: N/A Was Clonidine taken within 24 hours: N/A Social: Social History: No alcohol and No tobacco Exam: Pre-Anes Outpt Exam: alert, oriented x 3, clear to auscultation bilaterally and regular rate & rhythm Airway: Submandibular: WNL Cervical ROM: WNL MP: 2 History/ROS: No significant history except as noted Pulmonary: Pulmonary: None reported CV/HEM: CV/HEM: None reported : : None reported Hepatic: Hepatic: None reported GI: GI: GERD (exacerbated by chronic cholecystitis) Metabolic: Metabolic: Morbid obesity Musc/skel: Musc/skel: None reported Neuropsych: Neuropsych: None reported Anesthetic Plan: ASA status: 2 Anesthesia: Anesthesia Evaluation Risk of > 500 ml blood loss (7ml/kg in children): No Meds/Allergies Current Medications: Current Medications Generic Name Dose Route Start Last Admin Trade Name Freq PRN Reason Stop Dose Admin Lactated Ringer's 1,000 mls @ 999 m ls/hr 07/07/21 04:13 07/07/21 07:28 Lactated Ringers IV 999 mls/hr .Q1H1M PRN Administration See label comment s Oxytocin 30 unit in 500 ml s @ 2 mls/hr 07/07/21 06:42 07/07/21 08:53 Pitocin IV 2 milliunit/min .Q24H PRN 2 mls/hr Labor Augmentatio n Administration Protocol 2 MILLIUNIT/MIN PFSH Anesthesia PFSH: Medical History Thyroid nodule Surgical History H/O right knee surgery H/O wrist surgery [place] teeth removed Female Reproductive History: Date of last menstrual period: 10/09/20 : 3 Data Anesthesia CBC & Chem 7: 07/07/21 03:58 07/07/21 03:58 Other Labs: Laboratory Results - last 48 hr 07/07/21 07/07/21 07/07/21 03:58 03:58 03:58 WBC 9.3 RBC 3.79 L Hgb 11.3 L Hct 34.0 L MCV 89.7 MCH 29.8 MCHC 33.2 RDW 13.3 Plt Count 234 MPV 12.3 H Neut % (Auto) 65.2 Lymph % (Auto) 26.8 [place] % (Auto) 6.5 Eos % (Auto) 0.4 Baso % (Auto) 0.6 Neut # (Auto) 6.06 Lymph # (Auto) 2.5 [place] # (Auto) 0.6 Eos # (Auto) 0.0 Baso # (Auto) 0.1 Nucleated RBC % (auto) 0 Nucleated RBCs # 0.0 Sodium 136 Potassium 4.1 Chloride 104 Carbon Dioxide 21 L Anion Gap 15.1 BUN 7 Creatinine 0.4 L GFR Calculation 191.5 H Glucose 70 Calculated Osmolality 278 L Uric Acid 2.8 Calcium 8.7 Total Bilirubin 0.2 AST 17 ALT 16 Alkaline Phosphatase 127 H Total Protein 6.7 Albumin 3.6 Globulin 3.1 Urine Color Urine Appearance Urine pH Ur Specific [place] Urine Protein Urine Glucose (UA) Urine Ketones Urine Blood Urine Nitrate Urine Bilirubin Urine Urobilinogen Ur Leukocyte Esterase Urine RBC Urine WBC Ur Squamous Epith Cells Amorphous Sediment Urine Bacteria Urine Mucus U Random Total Protein 4 Urine Creatinine 28 Protein/Creatinin Ratio 0.14 07/07/21 03:58 WBC RBC Hgb Hct MCV MCH MCHC RDW Plt Count MPV Neut % (Auto) Lymph % (Auto) [place] % (Auto) Eos % (Auto) Baso % (Auto) Neut # (Auto) Lymph # (Auto) [place] # (Auto) Eos # (Auto) Baso # (Auto) Nucleated RBC % (auto) Nucleated RBCs # Sodium Potassium Chloride Carbon Dioxide Anion Gap BUN Creatinine GFR Calculation Glucose Calculated Osmolality Uric Acid Calcium Total Bilirubin AST ALT Alkaline Phosphatase Total Protein Albumin Globulin Urine Color Yellow Urine Appearance Clear Urine pH 7 Ur Specific [place] 1.005 Urine Protein Neg Urine Glucose (UA) Norm Urine Ketones Negative Urine Blood Neg Urine Nitrate Negative Urine Bilirubin Neg Urine Urobilinogen Norm Ur Leukocyte Esterase Negative Urine RBC 0-4 H Urine WBC 0-4 H Ur Squamous Epith Cells 0-4 H Amorphous Sediment 1+ Urine Bacteria Trace Urine Mucus 1+ U Random Total Protein Urine Creatinine Protein/Creatinin Ratio Cardiac Studies: No Data to Display
[2021-07-07] MEDS: dextrose 5%-lactated ringers 1,000 ML 125 ML IV ×2 (09:30→17:46)
--- NOTE | 2021-07-07 19:57 | P.MISC_ITS ---
Miscellaneous Note Note: The patient was initially making change on her own, however this change had stopped and she was given IV Pitocin to augment labor. She is stalled out at 3.5 cm dilation. For this reason a Ureña bulb has been placed to help augment labor. This was placed without complication. The patient is c omfortable at this time. She has a laboring epidural. We will decrease IV Pitocin to 10 units and increase once the Ureña bulb comes out. The patient and her significant other are in agreement with the current plan of care. All questions were answered.
[2021-07-08] VITALS (45 sets, daily range): BP systolic 101–149; BP diastolic 51–104; PULSE 50–82; RESP 16; TEMP 36.1–36.9; O2SAT 97–99
[2021-07-08] MEDS: dextrose 5%-lactated ringers 1,000 ML 125 ML IV (00:53)
--- NOTE | 2021-07-08 04:11 | PM.DELIVERY ---
Delivery Note: Date of delivery: July 08, 2021 Pre-delivery diagnoses: 1. Intrauterine at 38.6 weeks gestation 2. Acute cholecystitis with cholelithiasis at 37 weeks gestation 3. Thyroid nodule 4. Mild anemia Post-delivery diagnoses: 1. Intrauterine status post spontaneous vaginal delivery at 38.6 weeks gestation 2. Acute cholecystitis with cholelithiasis at 37 weeks gestation 3. Thyroid nodule 4. Mild anemia 5. Delivery of infant male weighing 9 pounds 3 ounces with Apgars of 6 and 7 Op report anesthesia: Epidural Delivering Physician: Abner Cho MD Estimated blood loss (mL): 100 Pre-Delivery Course: Patient presented to labor and delivery triage with contractions on the morning of 07/07/2021. The contractions were regular and she made change from 1 cm to 3 cm after an hour. For this reason she was kept. The patient was then given IV Pitocin for augmentation of labor as her contractions started to space out. The patient received a laboring epidural. The patient then stalled out and a Ureña bulb was placed to assist with dilation. The patient then continued to make change although it was slow. The mother had an anterior lip at 3:34 AM on 07/08/2021. This was easily reducible. Delivery: The patient began pushing at 3:34 AM on 07/08/2021. She was complete after 1 set of contractions. The patient pushed well and the delivered in the OA position at 3:46 AM on 07/08/2021. The left shoulder was the anterior shoulder and it delivered with ease. Rest of the delivered without complication. The infant's mouth and nose were bulb suctioned by myself. The infant had good tone at delivery and was crying immediately after delivery. The infant was placed on the mother's chest where the nurses were waiting to care for him. The cord was clamped myself after approximately 1 minute and cut by the 's father. The cord was then drained of blood and traction was placed on umbilical cord and uterine massage was carried out. The placenta delivered without complication at 3:52 AM on 07/08/2021. The placenta was noted to be intact with a central umbilical cord insertion site. The cervix was inspected and no lacerations were noted. The vaginal was inspected and there was a small abrasion in the periurethral region. No suturing was needed. The mother's bleeding is very little at this time. Currently both the mother and infant are doing well. A&P Assessment and plan (1) Obesity: Status: Acute (2) Intrauterine : Status: Acute Coding Level of Care Code Acute Director Of Student Life for Chg Fwd Diagnoses Obesity E66.9 Intrauterine Z34.90
[2021-07-08] MEDS: oxytocin 30 UNIT/500 ML BAG 600 UNIT IV (04:27)
[2021-07-08] MEDS: acetaminophen 325 mg Tablet 650 MG PO (07:41)
--- NOTE | 2021-07-08 09:49 | ANE.PACU2 ---
Inpatient post-anesthesia follow up: Airway intact: Yes Vital signs: Temperature 97.4 F Pulse Rate 73 Respiratory Rate 20 Blood Pressure 119/74 Pulse Oximetry 98 Oxygen Delivery Me thod Room Air Oxygen Flow Rate Fraction of Inspir ed Oxygen Hydration adequate: Yes Nausea and vomiting: No Pain level: 2 Mental status: Baseline
[2021-07-08] MEDS: ibuprofen 800 mg tablet PO ×3 (10:03→20:43)
[2021-07-08] MEDS: prenatal vitamin Capsule 1 CAP PO (10:03)
[2021-07-08] MEDS: docusate sodium 100 mg Capsule PO ×2 (10:04→17:49)
--- NOTE | 2021-07-08 11:15 | PC.NURSE ---
Patient and spouse are going to take a nap and have asked this nurse to take baby to nurses station for about an hour.
[2021-07-08 17:19] LABS: Hematocrit 35.5 % (37.0-47.0); Hemoglobin 11.7 g/dL (11.5-15.3); Mean Corpuscular Hemoglobin 30.2 pg (28.0-34.0); Mean Corpuscular Volume 91.7 fL (81-99); Mean Platelet Volume 12.3 fL (7.4-10.4); Platelet Count 208 10^3/cmm (130-400); Red Blood Count 3.87 10^6/uL (4.1-5.3); Red Cell Distribution Width 13.5 % (12.1-15.1)
[2021-07-09 04:30] VITALS: BP 116/80; PULSE 72; RESP 16
--- NOTE | 2021-07-09 08:49 | PM.DCS ---
Discharge Providers Date of Admission: 07/07/21 04:14 Date of Discharge: July 09, 2021 Attending Provider at Admission: Abner Cho MD Attending Provider at Discharge: Abner Cho MD Primary Care Provider: Suresh Chambers DO Diagnoses at Discharge Discharge Diagnosis (1) Obesity: Status: Acute (2) Intrauterine : Status: Acute Other Information Additional DC diagnoses/information: 1. Intrauterine status post spontaneous vaginal delivery at 38.6 weeks gestation 2. Acute cholecystitis with cholelithiasis at 37 weeks gestation 3. Thyroid nodule 4. Mild anemia 5. Delivery of male weighing 9 pounds 3 ounces with Apgars of 6 and 7 Reason for Visit Reason for Visit: contractions Hospital Course Hospital Course Pre-Delivery Course: The patient presented to labor and delivery triage with contractions on the morning of 07/07/2021. The contractions were regular and she made change from 1 cm to 3 cm after an hour. For this reason she was kept. The patient was then given IV Pitocin for augmentation of labor as her contractions started to space out. The patient received a laboring epidural. The patient then stalled out and a Ure[place] bulb was placed to assist with dilation. The patient then continued to make change although it was slow. The mother had an anterior lip at 3:34 AM on 07/08/2021. This was easily reducible. Delivery: The patient began pushing at 3:34 AM on 07/08/2021. She was complete after 1 set of contractions. The patient pushed well and the infant delivered in the OA position at 3:46 AM on 07/08/2021. The left shoulder was the anterior shoulder and it delivered with ease. Rest of the infant delivered without complication. The infant's mouth and nose were bulb suctioned by myself. The had good tone at delivery and was crying immediately after delivery. The infant was placed on the mother's chest where the nurses were waiting to care for him. The cord was clamped myself after approximately 1 minute and cut by the infant's father. The cord was then drained of blood and traction was placed on umbilical cord and uterine massage was carried out. The placenta delivered without complication at 3:52 AM on 07/08/2021. The placenta was noted to be intact with a central umbilical cord insertion site. The cervix was inspected and no lacerations were noted. The vaginal was inspected and there was a small abrasion in the periurethral region. No suturing was needed. : The patient has done very well without any complications. Her bleeding is decreasing well. She is ambulating, voiding, passing gas and tolerating food by mouth. She initially had a headache after delivery, that has improved since. The patient is currently having no symptoms from her gallbladder. The patient had acute cholecystitis with cholelithiasis and will plan to follow-up with Dr. Patterson in 1 month for outpatient laparoscopic cholecystectomy. All questions were answered. Routine discharge instructions were discussed. The patient and her are in agreement with the current plan of care. Physical Exam Narrative: EXAM NARRATIVE: General: Alert and oriented x3 Cardiac: Regular rate and rhythm without murmurs Lungs: Clear to auscultation bilaterally without wheezes, crackles or rhonchi Abdomen: Soft, non-tender, fundus is firm and 2 cm below the umbilicus. Extremities: Trace edema in the bilateral lower extremities Urinary Catheter Management^: Latex Free: Cath Placed During This Visit: yes, but has since been removed by the nurse Reason for Continuing Indwelling Catheter: Decision to DC Catheter Urinary Catheter Date of Insertion: 07/07/21 Urinary Catheter Time of Insertion: 11:17 Date Urinary Catheter Removed: 07/08/21 Time Urinary Catheter Discontinued: 03:31 Discharge Data Data Completed and Pending: Labs from last 24 hours 07/08/21 16:38 WBC 13.0 H RBC 3.87 L Hgb 11.7 Hct 35.5 L MCV 91.7 MCH 30.2 MCHC 33.0 RDW 13.5 Plt Count 208 MPV 12.3 H Vitals: Last Vital Signs Temp 98.4 F 07/08/21 21:41 Pulse 72 07/09/21 04:30 Resp 16 07/09/21 04:30 BP 116/80 07/09/21 04:30 Pulse Ox 97 07/08/21 17:32 Discharge Plan Discharge Patient Disposition: Home Condition: Good Prescriptions: New ibuprofen 800 mg Tablet 800 mg PO TID Qty: 60 RF: 0 -U 106.5-1 mg Capsule 1 cap PO DAILY Qty: 30 RF: 0 ferrous sulfate 325 mg (65 mg iron) tablet 325 mg PO BID Qty: 30 RF: 0 Discontinued metronidazole 500 mg tablet 500 mg PO TID Qty: 21 RF: 0 loperamide 2 mg capsule 2 mg PO QID PRN (Reason: loose stool) Qty: 30 RF: 0 Discharge Orders: Discharge Order (Routine); Ordered 07/09/21 Ordered By: Abner Cho Referrals: Freddie Patterson MD [Physician] - 1 month (Follow-up on acute cholecystitis with cholelithiasis) Abner Cho MD [Physician] - 6 Weeks Discharge Diet: As Directed Discharge Activity: Increase activity as tolerated Patient Instructions: Opioid Safety Activity Restrictions/Additional Instructions: Nothing per vagina for 6 weeks. Keep your diet bland as discussed. If having further problems regarding your gallbladder, please get earlier appointment with Dr. Patterson. Discharge Attestations Time Spent in Discharge Care*: greater than 30 min Quality Metrics Clinical Quality Measures During this hospital stay, did patient experience: None Coding Level of Care Code Acute Chg FW [place] note Diagnoses Obesity E66.9 Intrauterine Z34.90
[2021-07-09 10:19] VITALS: BP 121/80; PULSE 78; RESP 17; TEMP 36.8; O2SAT 98
[2021-07-09] MEDS: docusate sodium 100 mg Capsule PO (10:38)
[2021-07-09] MEDS: ibuprofen 800 mg tablet PO (10:39)
[2021-07-09] MEDS: prenatal vitamin Capsule 1 CAP PO (10:39)
[2021-07-09 12:44] VITALS: BP 121/80; PULSE 78; RESP 17; TEMP 36.8; O2SAT 98
== END 2021-07-09 12:30 | disposition home or self-care (01) | DRG 806 ==
LOC: OPOB 04:24 → OBGYN 06:26
PROVIDERS: Admitting Provider Family Medicine; PCP Electrodiagnostic Medicine; Visit Provider Family Medicine
DX: O99.214 Obesity complicating childbirth (principal); K80.00 Calculus of gallbladder with acute cholecystitis without obstruction; Z37.0 Single live birth; O99.62 Diseases of the digestive system complicating childbirth; E66.01 Morbid (severe) obesity due to excess calories; K21.9 Gastro-esophageal reflux disease without esophagitis; O99.284 Endocrine, nutritional and metabolic diseases complicating childbirth; E04.1 Nontoxic single thyroid nodule; O99.02 Anemia complicating childbirth; D64.9 Anemia, unspecified; Z3A.38 38 weeks gestation of pregnancy
CPT/HCPCS: 36415; 51702; 59025; 59409; 80053; 81001; 82570; 84156; 84550; 85025; 85027; 86850; 86900; 98960; 99211; J2795

== ENCOUNTER 2022-02-21 11:40 | Emergency (ER) | payer OTHER, MEDICAID, SELFPAY ==
[2022-02-21 11:45] VITALS: BP 153/103; PULSE 72; RESP 22; TEMP 36.3; O2SAT 100; BMI 36.3
--- NOTE | 2022-02-21 11:53 | XRR_ITS ---
PROCEDURE INFORMATION: Exam: XR Chest Exam date and time: 02/21/2022 12:28 PM Age: 26 years old Clinical indication: Cough and dyspnea; Additional info: Dyspnea/cough TECHNIQUE: Imaging protocol: XR of the chest. Views: 1 view. COMPARISON: CR Chest 1 [place] [id number] 09/20/2018 10:47 PM FINDINGS: Lungs: Unremarkable. No consolidation. Pleural spaces: Unremarkable. No pleural effusion. No pneumothorax. Heart/Mediastinum: Unremarkable. No cardiomegaly. Bones/joints: Unremarkable. XR/XR chest 1V portable [id number] IMPRESSION: No acute findings.
--- NOTE | 2022-02-21 12:30 | ED_ITS ---
HPI - Abdominal Pain General: Chief Complaint: Shortness of Breath/Dyspnea Stated Complaint: pain in abdomen and trouble talking/moving Time Seen by Provider: 02/21/22 11:49 Source: patient Mode of arrival: ambulatory Limitations: no limitations History of Present Illness: 26-year-old female presents emergency room complaining of right upper quadrant pain has been worsening over the last week This been ongoing for several months now dating back to her previous pregnancies she has known cholelithiasis she seen Dr. Zuluaga is actually scheduled for cholecystectomy. She is still getting abdominal pain she had some earlier today and took some Gas-X and Tums. She was short of breath at that time as well due to the abdominal discomfort that the shortness of breath has resolved she denies any fever noted symptoms she denies any hematochezia melena hematemesis or coffee-ground emesis denies any fever sweats or chills. Is not having any diarrhea or vomiting but has been nauseated somewhat. MD elicited complaint: abdominal pain Pertinent past history: other (Cholelithiasis) Onset (ago): month(s) (Worse in the last week) Pain Consistency: intermittent Location: RUQ Severity: severe Quality: cramping Radiation: none Migration to: no migration Exacerbating factors: eating Relieving factors: nothing Associated Symptoms: Reports bloating, GI cramping and nausea; Denies anorexia, belching, change in bowel habits, change in stool character, chills, coffee ground emesis, constipation, diarrhea, dyspepsia, dysuria, excessive flatus, fever(s), heartburn, hematochezia, hematuria, hematemesis, fecal incontinence, loose stools, melena, poor appetite, syncope and vomiting Related Data: Date of Last Menstrual Period: 10/09/20 Review of Systems Const: Denies: fever(s) or chills Card: Denies: syncope GI: Reports: abdominal pain, nausea, bloating and GI cramping; Denies: vomiting, hematemesis, coffee ground emesis, heartburn, diarrhea, constipation, belching, excessive flatus, fecal incontinence, change in bowel habits, change in stool character, hematochezia or melena : Denies: dysuria or hematuria PFS ED PFSH: Medical History Thyroid nodule Surgical History H/O right knee surgery H/O wrist surgery [place] teeth removed Female Reproductive History: Date of last menstrual period: 10/09/20 Physical Exam Const: GENERAL APPEARANCE: cooperative and comfortable ORIENTATION/CONSCIOUSNESS: Yes awake, Yes oriented to person, Yes oriented to place and Yes oriented to time HENMT: COMMON NORMALS: normocephalic, atraumatic and hearing grossly normal bilaterally HEAD & SCALP: normocephalic and atraumatic Resp: COMMON NORMALS: normal respiratory effort, No retractions, No use of accessory muscles and clear to auscultation bilaterally AUSCULTATION: clear to auscultation bilaterally Cardio: COMMON NORMALS: regular rate, regular rhythm and No murmurs present (Cardio) RATE: regular rate RHYTHM: regular rhythm GI: COMMON NORMALS: No hepatosplenomegaly present AUSCULTATION: Yes normoactive bowel sounds PALPATION: Yes Tenderness to palpation present (GI) Details: RUQ, No Guarding due to palpation present (GI) and Yes No hepatosplenomegaly present Extremity: COMMON NORMALS: normal to inspection, capillary refill normal, no clubbing, cyanosis or edema, no calf tenderness and no pedal edema Neuro: SENSORIUM/ORIENTATION: Yes oriented to person, Yes oriented to place and Yes oriented to time Skin: COMMON NORMALS: no rashes or lesions noted GENERAL SKIN EXAM: no rashes or lesions noted Course Vital Signs: Vital signs: Vital Signs Temperature 97.4 F L 02/21/22 11:45 Pulse Rate 72 02/21/22 11:45 Respiratory Rate 22 H 02/21/22 11:45 Blood Pressure 153/103 02/21/22 11:45 Pulse Oximetry 100 02/21/22 11:45 MDM - Abdominal Pain Medical Decision Making Patient certainly does sound that she has biliary colic and I am sure it is secondary to the cholelithiasis at this time however there is no elevated white count and no significant change in her T bili no signs of obstruction discussed with surgery they recommend bland diet pain control nausea medications and follow-up as scheduled for the planned outpatient cholecystectomy return if is worsening problem Medical Records I reviewed the patient's medical records. Lab Data I reviewed the patient's lab results. : 02/21/22 12:23 02/21/22 12:23 Labs/Radiology: Radiology Impressions Chest X-Ray 02/21/22 11:53 IMPRESSION: No acute findings. Laboratory Results WBC 8.0 10^3/uL (4.0-10.0) 02/21/22 12:23 RBC 5.14 10^6/uL (4.1-5.3) 02/21/22 12:23 Hgb 14.4 g/dL (11.5-15.3) 02/21/22 12:23 Hct 42.6 % (37.0-47.0) 02/21/22 12: MCV 82.9 fl (81-99) 02/21/22 12: MCH 28.0 pg (28.0-34.0) 02/21/22 12: MCHC 33.8 g/dL (30.0-36.0) 02/21/22 12: RDW 11.9 % (12.1-15.1) L 02/21/22 12: Plt Count 264 10^3/cmm (130-400) 02/21/22 12:23 MPV 11.5 fL (7.4-10.4) H 02/21/22 12: Neut % (Auto) 61.3 % 02/21/22 12: Lymph % (Auto) 31.1 % 02/21/22 12:23 [place] % (Auto) 5.9 % 02/21/22 12: Eos % (Auto) 1.0 % 02/21/22 12: Baso % (Auto) 0.6 % 02/21/22 12:23 Neut # (Auto) 4.92 10^3/uL (1.8-7.7) 02/21/22 12:23 Lymph # (Auto) 2.5 10^3/uL (0.8-4.8) 02/21/22 12:23 [place] # (Auto) 0.5 10^3/uL (0.2-0.9) 02/21/22 12:23 Eos # (Auto) 0.1 10^3/uL (0.0-0.8) 02/21/22 12:23 Baso # (Auto) 0.1 10^3/uL (0.0-0.1) 02/21/22 12:23 Nucleated RBC % (auto) 0 % 02/21/22 12:23 Nucleated RBCs # 0.0 /100WBC 02/21/22 12:23 Sodium 138 mmol/L (136-145) 02/21/22 12:23 Potassium 4.0 mmol/L (3.5-5.1) 02/21/22 12:23 Chloride 99 mmol/L (98-107) 02/21/22 12:23 Carbon Dioxide 25 mmol/L (22-29) 02/21/22 12:23 Anion Gap 18.0 (5-19) 02/21/22 12:23 BUN 13 mg/dL (6-20) 02/21/22 12:23 Creatinine 0.6 mg/dL (0.5-0.9) 02/21/22 12:23 GFR Calculation 119.9 mL/min (90-130) 02/21/22 12:23 Glucose 105 mg/dL (65-115) 02/21/22 12:23 Calculated Osmolality 286 mOsm/kg (285-295) 02/21/22 12:23 Calcium 11.0 mg/dL (8.5-10.5) H 02/21/22 12:23 Total Bilirubin 0.4 mg/dL (0.15-1.2) 02/21/22 12:23 AST 43 U/L (0-32) H 02/21/22 12:23 ALT 31 U/L (0-33) 02/21/22 12:23 Alkaline Phosphatase 168 IU/L (35-105) H 02/21/22 12:23 Total Protein 8.5 g/dL (6.6-8.7) 02/21/22 12:23 Albumin 5.2 g/dL (3.5-5.2) 02/21/22 12:23 Globulin 3.3 g/dL (1.3-4.6) 02/21/22 12:23 Lipase 20 U/L (13-60) 02/21/22 12:23 Discharge Plan Discharge Patient Disposition: Home Clinical Impression: Acute calculous cholecystitis, Biliary colic Condition: Stable Prescriptions: New hydrocodone-acetaminophen 5-325 mg tablet 1 tab PO Q6H PRN (Reason: pain) Qty: 20 0RF Zofran 4 mg tablet 4 mg PO Q6H PRN (Reason: nausea and vomiting) Qty: 20 0RF Discharge Orders: Discharge ED (Routine); Ordered 02/21/22 Ordered By: Marco Gage Referrals: Suresh Chambers DO [Primary Care Provider] - Patient Instructions: Abdominal Pain (ED), Opioid Safety Activity Restrictions/Additional Instructions: Follow-up with Dr. Sabillon as previously scheduled this week. [place] and clear liquid diet with absolutely no fatty foods at all. Coding Level of Care Code ED Utilities Ground Worker for Chg Fwd Exam Detailed
[2022-02-21 12:44] LABS: Basophils # 0.1 10^3/uL (0.0-0.1); Basophils % 0.6 %; Eosinophils # 0.1 10^3/uL (0.0-0.8); Hematocrit 42.6 % (37.0-47.0); Hemoglobin 14.4 g/dL (11.5-15.3); Lymphocytes # 2.5 10^3/uL (0.8-4.8); Lymphocytes % 31.1 %; Mean Corpuscular HGB Conc 33.8 g/dL (30.0-36.0); Mean Corpuscular Volume 82.9 fl (81-99); Mean Platelet Volume 11.5 fL (7.4-10.4); Monocytes # 0.5 10^3/uL (0.2-0.9); Monocytes % 5.9 %; Neutrophils # 4.92 10^3/uL (1.8-7.7); Neutrophils % 61.3 %; Nucleated Red Blood Cells % 0 %; Platelet Count 264 10^3/cmm (130-400); Red Blood Count 5.14 10^6/uL (4.1-5.3); Red Cell Distribution Width 11.9 % (12.1-15.1)
[2022-02-21 12:59] LABS: Lipase 20 U/L (13-60)
[2022-02-21 13:00] LABS: Alanine Aminotransferase 31 U/L (0-33); Albumin Level 5.2 g/dL (3.5-5.2); Alkaline Phosphatase 168 IU/L (35-105); Aspartate Amino Transferase 43 U/L (0-32); Blood Urea Nitrogen 13 mg/dL (6-20); Carbon Dioxide 25 mmol/L (22-29); Chloride 99 mmol/L (98-107); Globulin 3.3 g/dL (1.3-4.6); Glomerular Filtration Rate 119.9 mL/min (90-130); Glucose 105 mg/dL (65-115); Osmolality Calculated 286 mOsm/kg (285-295); Sodium 138 mmol/L (136-145); Total Bilirubin 0.4 mg/dL (0.15-1.2); Total Protein 8.5 g/dL (6.6-8.7)
== END 2022-02-21 13:50 | disposition home or self-care (01) ==
PROVIDERS: Emergency Provider Family Medicine; PCP Electrodiagnostic Medicine
DX: K80.00 Calculus of gallbladder with acute cholecystitis without obstruction (principal)
CPT/HCPCS: 71045; 80053; 83690; 85025; 99282

== ENCOUNTER 2023-11-30 20:00 | Outpatient (CLI) | payer OTHER, MEDICAID, SELFPAY | END 2023-11-30 20:01 | disposition home or self-care (01) | LOC: SLEEP 12-01 04:21 | PROVIDERS: PCP Electrodiagnostic Medicine; Visit Provider Electrodiagnostic Medicine | DX: G47.33 Obstructive sleep apnea (adult) (pediatric) (principal); G47.36 Sleep related hypoventilation in conditions classified elsewhere; G47.10 Hypersomnia, unspecified | CPT/HCPCS: 95810 ==

== ENCOUNTER 2024-03-22 20:00 | Outpatient (CLI) | payer OTHER, MEDICAID, SELFPAY | END 2024-03-22 20:01 | disposition home or self-care (01) | LOC: SLEEP 03-23 06:17 | PROVIDERS: PCP Electrodiagnostic Medicine; Visit Provider Electrodiagnostic Medicine | DX: G47.10 Hypersomnia, unspecified (principal) | CPT/HCPCS: 95811 ==

== ENCOUNTER 2024-09-26 09:41 | Emergency (ER) | payer OTHER, MEDICAID, SELFPAY ==
--- NOTE | 2024-09-26 09:44 | XRR_ITS ---
PROCEDURE INFORMATION: Exam: XR Left Foot Exam date and time: 09/26/2024 9:56 AM Age: 29 years old Clinical indication: Injury or trauma; Fall; Blunt trauma; Left; Injury details: [place] lt foot pop TECHNIQUE: Imaging protocol: Radiologic exam of the left foot. Views: 3 or more views. COMPARISON: No relevant prior studies available. FINDINGS: Bones/joints: There is minimal plantar calcaneal spurring. No acute fracture or dislocation. Alignment is within normal limits. Soft tissues: Normal. XR/XR foot LT min 3V* [id number] IMPRESSION: No acute osseous abnormality
[2024-09-26 09:48] VITALS: BP 134/91; PULSE 102; RESP 25; TEMP 36.6; O2SAT 100; BMI 38.2
--- NOTE | 2024-09-26 11:14 | ED_ITS ---
HPI - Extremity Injury (Lower) General: Chief Complaint: Extremity Injury, Lower Stated Complaint: Left injury, extreme pain, might be broken Time Seen by Provider: 09/26/24 09:44 Source: patient Mode of arrival: wheelchair Limitations: no limitations History of Present Illness: Patient is a 29-year-old female presents to ED today with a complaint of a left foot injury that she sustained just prior to arrival after she was feeding her chickens and accidentally hyperextended the foot. She states she heard some crunching and had immediate discomfort. She has not been able to bear weight on the foot since the injury. No other injuries or complaints at this time. complaint: foot injury Onset (ago): hour(s) Injury: Left: foot Place: home Severity: severe Severity scale (1-10): 10 Relieving factors: nothing Exacerbating factors: weight bearing, movement and palpation Context: walking Associated symptoms: Reports inability to bear weight Other symptoms: none Related Data Previous Rx's Medication Instructions Recorded ondansetron HCl 4 mg tablet 4 mg PO Q6H PRN nausea and 02/21/22 (Zofran) vomiting #20 tabs hydrocodone 5 mg-acetaminophen 325 1 tab PO Q6H PRN pain #10 tabs 09/26/24 mg tablet Allergies Allergy/AdvReac Type Severity Reaction Status Date / Time Penicillins Allergy ALGY-Anaphy Verified 06/22/21 06:53 laxis Review of Systems Musc: Reports: extremity pain (L foot) and extremity swelling (L foot) Neuro: Denies: numbness in extremities or sensory changes [facility] ED PFSH: Medical History Thyroid nodule Surgical History [place] teeth removed H/O wrist surgery H/O right knee surgery Physical Exam Const: COMMON NORMALS: no acute distress, average body habitus, patient oriented x3, no limitations, healthy appearing, alert and well nourished GENERAL APPEARANCE: cooperative Extremity: COMMON NORMALS: capillary refill normal and no calf tenderness GENERAL: Yes normal exam except as noted RIGHT LOWER EXTREMITY: Yes foot & digits (normal ankle examination) and Yes foot & digits (TTP dorsal L foot; no obvious deformity noted; mild edema) Right foot and digits: Yes ROM (limited secondary to pain) and Yes neurovascular exam (normal) Neuro: COMMON NORMALS: patient oriented x3, moves all extremities, no focal motor deficits and no sensory deficits noted SENSORIUM/ORIENTATION: Yes alert GAIT: Yes Unable to assess gait Course Vital Signs: Vital signs: Vital Signs Temperature 97.9 F 09/26/24 09:48 Pulse Rate 102 H 09/26/24 09:48 Respiratory Rate 25 H 09/26/24 09:48 Blood Pressure 134/91 09/26/24 09:48 Pulse Oximetry 100 09/26/24 09:48 Oxygen Delivery Me thod Room Air 09/26/24 09:48 MDM - Extremity Injury (Lower) Medical Decision Making XR unremarkable. Patient in quite a bit of discomfort. Suspect significant sprain/strain. Discussed RICE therapy and follow up with PCP in 2 weeks if foot does not seem to be improving. Lab Data Radiology Impressions Foot X-Ray 09/26/24 09:44 IMPRESSION: No acute osseous abnormality All radiology interpretation(s) finalized by discharge Discharge Plan Discharge Patient Disposition: Home Clinical Impression: Sprain of foot, left Qualifiers: Encounter type: initial encounter Qualified Code(s): S93.602A - Unspecified sprain of left foot, initial encounter Condition: Stable Prescriptions: Continued hydrocodone-acetaminophen 5-325 mg tablet 1 tab PO Q6H PRN (Reason: pain) Qty: 10 0RF No Action Zofran 4 mg tablet 4 mg PO Q6H PRN (Reason: nausea and vomiting) Qty: 20 0RF Discharge Orders: Discharge ED (Routine); Ordered 09/26/24 Ordered By: Kristy Rodrigez Referrals: Suresh Chambers DO [Primary Care Provider] - Patient Instructions: Foot Sprain (ED), Opioid Safety, Pain Management, RICE Therapy Activity Restrictions/Additional Instructions: As we discussed, use the crutches as needed for weightbearing. You may bear weight as tolerated. Ice and elevate the extremity is much as possible. Use [id number] analgesics as needed for discomfort. You may use the prescription pain medication to use sparingly for severe pain. Please follow-up with primary care in 2 weeks if symptoms do not seem to be improving. Coding Level of Care Code ED Real Estate Clerk for Abigail Camacho
[2024-09-26 11:35] VITALS: RESP 18; O2SAT 96
[2024-09-26] MEDS: ondansetron 2 mg/ML SDV 2 mL 4 MG IM (11:35)
[2024-09-26] MEDS: morphine 4 mg/mL SDV 1 mL IM (11:35)
[2024-09-26 11:57] VITALS: BP 108/66; PULSE 85; O2SAT 98
== END 2024-09-26 11:50 | disposition home or self-care (01) ==
PROVIDERS: Emergency Provider Physician Assistant; PCP Electrodiagnostic Medicine
DX: S93.602A Unspecified sprain of left foot, initial encounter (principal); X58.XXXA Exposure to other specified factors, initial encounter
CPT/HCPCS: 73630; 96372; 99284; E0114; J2270; J2405

== ENCOUNTER 2024-10-13 14:53 | Outpatient (CLI) | payer OTHER, MEDICAID, SELFPAY ==
--- NOTE | 2024-10-13 14:55 | MRR_ITS ---
PROCEDURE INFORMATION: Exam: MR Left Lower Extremity Other Than Joint Without Contrast; Foot Exam date and time: 10/13/2024 3:17 PM Age: 29 years old Clinical indication: Condition or disease; Other: Lisfranc fracture TECHNIQUE: Imaging protocol: Magnetic resonance imaging of the left lower extremity without contrast. Exam focused on the foot. COMPARISON: CR XR foot LT min 3V* [id number] 09/26/2024 9:56 AM FINDINGS: Bones/joints: No appreciable bony fracture. Mild increased signal/mild contusions in the tarsometatarsal joints. Otherwise, normal bone marrow signal. No worrisome lytic or blastic osseous lesion. LIGAMENTS: Lisfranc ligament: There is midsubstance disruption of the dorsal and interosseous Lisfranc ligaments. Mild widening of the joint space. TENDONS: Flexor tendons of foot: Unremarkable. No evidence of tear. Tibialis posterior tendon: Unremarkable as visualized. Peroneal tendons: Unremarkable as visualized. Extensor tendons of foot: Unremarkable. No evidence of tear. Tibialis anterior tendon: Unremarkable as visualized. Tarsal canal (Sinus tarsi): Unremarkable. Tarsal tunnel: Unremarkable. Soft tissues: Mild-moderate subcutaneous edema in the imaged forefoot and midfoot. Plantar fascia: Unremarkable as visualized. MR/MR foot LT wo con* [id number] IMPRESSION: 1. There is midsubstance disruption of the dorsal and interosseous Lisfranc ligaments. Mild widening of the joint space. 2. Mild increased signal/mild contusions in the tarsometatarsal joints.
== END 2024-10-13 14:54 | disposition home or self-care (01) ==
LOC: RAD 14:53
PROVIDERS: PCP Electrodiagnostic Medicine; Visit Provider Podiatrist Foot & Ankle Surgery
DX: S92.202A Fracture of unspecified tarsal bone(s) of left foot, initial encounter for closed fracture (principal); X58.XXXA Exposure to other specified factors, initial encounter
CPT/HCPCS: 73718